=== PATIENT | male | born 1980 | race Caucasian/White ===

== ENCOUNTER 2021-07-03 17:12 | Emergency (ER) | payer OTHER ==
[2021-07-03 20:35] LABS: INFLUENZA A NAA NEGATIVE (NEGATIVE)
[2021-07-03 21:01] LABS: CORONAVIRUS 2019 SARS-COV-2 POSITIVE (NEGATIVE)
[2021-07-03] MEDS ORDERED: AZITHROMYCIN250 MG PO ×2 (21:16→21:59)
== END 2021-07-03 21:22 | disposition home or self-care (01) ==
LOC: FER 17:12
PROVIDERS: Nurse Practitioner Family
DX: U07.1 COVID-19 (principal); J12.82 Pneumonia due to coronavirus disease 2019; I10 Essential (primary) hypertension
CPT/HCPCS: 71045; U0002

== ENCOUNTER 2022-03-14 17:14 | Emergency (ER) | payer OTHER ==
[~2022-03-14 17:14] MED LIST: AZITHROMYCIN250 MG PO
== END 2022-03-14 21:39 | disposition home or self-care (01) ==
LOC: FER 17:14
DX: T15.92XA Foreign body on external eye, part unspecified, left eye, initial encounter (principal); I10 Essential (primary) hypertension; W22.8XXA Striking against or struck by other objects, initial encounter